=== PATIENT | female | born 1965 | race Caucasian/White ===

== ENCOUNTER 2018-03-04 16:24 | Emergency (ER) | payer BC, SELFPAY ==
[2018-03-04 16:25] VITALS: BP 146/92; PULSE 85; RESP 13; TEMP 36.6; O2SAT 98; BMI 27.8
--- NOTE | 2018-03-04 16:44 | EKG12_ITS ---
Test Reason : SYNCOPE Blood Pressure : / mmHG Vent. Rate : 075 BPM Atrial Rate : 075 BPM P-R Int : 138 ms QRS Dur : 094 ms QT Int : 412 ms P-R-T Axes : 061 041 050 degrees QTc Int : 460 ms Normal sinus rhythm Nonspecific ST abnormality Abnormal ECG Confirmed by TIAN BANDA, JONNA ([id number]), editorial clerk KIMMY FRANKLIN ([id number] on 03/06/2018 2:45:54 PM Referred By: SONY Confirmed By:JONNA OVERTON MD
--- NOTE | 2018-03-04 16:45 | CT_ITS ---
STUDY: CTA OF THE BRAIN REASON FOR EXAM: Female, 52 years old. Syncope and dizziness RADIATION DOSAGE (If Supplied By Facility): CTDIvol = ( 20.52 ) mGy, DLP = ( 1399.42 ) mGycm TECHNIQUE: CT angiography was performed with a multi-detector CT scanner. Data acquisition was obtained from the skull base through the vertex following intravenous administration of ml of . MIP images were reconstructed from the axial data set. Post-processing of the angiographic images was performed, with multiplanar reformation and 3D reconstruction. Individualized dose optimization techniques were used for this CT. COMPARISON: None. FINDINGS: Normal bilateral petrous carotid arteries. Minor plaquing of the right cavernous carotid artery with a normal supraclinoid bifurcation. Minor plaquing of the left cavernous carotid artery with a normal supraclinoid bifurcation. Normal right A1 segments of the anterior cerebral artery. Normal left A1 segments of the anterior cerebral artery. Normal intact anterior communicating artery (ACOM). Normal bilateral A2 segments of the anterior cerebral arteries. Normal right M1 and M2 segments of the middle cerebral arteries, with a normal M1 bifurcation. Normal left M1 and M2 segments of the middle cerebral arteries, with a normal M1 bifurcation. Posterior communicating arteries are not visualized consistent with normal variant The right vertebral is normal in caliber. There is mild diffuse narrowing of the left vertebral.. Normal basilar artery with a normal basilar bifurcation. The visualized bilateral superior cerebellar (SCA) arteries are normal. Normal bilateral P1, P2 and visualized P3 segments of the posterior cerebral arteries. There is no demonstrated aneurysm of the [place]. There is no demonstrated abnormality of the visualized brain. CT/CTA Head W/WO Contrast IMPRESSION: Mild atherosclerotic disease Electronically Signed: Franco Delarosa MD at 19:11 EDT , Service support ,
--- NOTE | 2018-03-04 16:45 | RAD_ITS ---
STUDY: X-RAY CHEST REASON FOR EXAM: Female, 52 years old. Syncope TECHNIQUE: AP portable COMPARISON: None. FINDINGS: Lungs are mildly hyperinflated. There is mild asymmetric increased interstitial thickening of the right lower lobe. There is a tiny nodular opacity at the right base measuring 5 to 6 mm in size There is no demonstrated pleural abnormality. Normal size heart. Normal mediastinum and dagoberto. Normal visualized pulmonary arteries. Normal visualized aortic arch and descending thoracic aorta. Normal visualized thoracic spine. Normal visualized ribs, clavicles, and shoulders. There is no demonstrated abnormality of the visualized soft tissue structures of the upper abdomen. RAD/Chest 1 View (Portable) IMPRESSION: Mild hyperinflation and asymmetric thickening of the interstitial markings at the right base. Tiny 5 to 6 mm right lower lobe nodular opacity of uncertain clinical significance. Recommend correlation with prior studies when available and follow-up Electronically Signed: Franco Delarosa MD at 17:25 EDT , Service support ,
--- NOTE | 2018-03-04 16:46 | CT_ITS ---
CTA of the neck INDICATION: Syncope and dizziness TECHNIQUE: CTA of the neck was performed scanning in a dynamically enhanced fashion in the axial plane followed by sagittal and coronal reconstructions. Radiographic technique was optimized to limit patient radiation dose. FINDINGS: There is minor soft plaque seen within the common carotids bilaterally. There is mild soft and calcific plaque within the carotid bulbs and origin of internal carotids without evidence for significant stenosis. The right vertebral is dominant. The left vertebral is diffusely smaller which may be consistent with normal developmental variant There is no significant focal segmental stenosis. Incidental finding of asymmetric prominence of the right lobe of thyroid. CT/CTA Neck W/WO Contrast IMPRESSION: Mild atherosclerotic disease without evidence for hemodynamically significant stenosis utilizing NASCET criteria. Electronically Signed: Franco Delarosa MD at 19:27 EDT , Service support ,
--- NOTE | 2018-03-04 16:56 | ED.DCSUM_ITS ---
- ER Visit Summary Date of Service: 03/04/18 Chief Complaint: Syncope History of Present Illness: The patient is a 52 F who presents after syncopal episode. Patient states she has not felt right over the past couple of weeks. She describes a fuzzy thought process in her head. She states she has been lightheaded has been holding onto objects at work when she is walking. She was seen by her PCP. Lab work and vital signs were unremarkable. Patient states today at work she went to drink water and it started to go down the wrong tube. She started to cough and choke and had a brief syncopal episode. She does note a family history of a brain aneurysm. She does not complain of headache currently. Physical Examination: Vital signs are unremarkable. Head and neck examination is unremarkable. Heart is regular rate and rhythm. On lung sounds are clear. Abdomen is soft nontender. Neuro exam is unremarkable. Test Results: EKG is sinus at 75 with no sign of acute ischemia. Portable chest x-ray shows mild hyperinflation and thickening of interstitial markings at the right base. There is a tiny 5-6 mm right lower lobe nodule. CBC is unremarkable. Chemistry studies are significant only for potassium slightly low at 3.3. CTA of the head and neck reveals mild atherosclerotic disease. There is no significant stenosis. Emergency Department Course and Treatment: Patient was given IV fluids here. On repeat evaluation she is resting comfortably. She is requesting discharge to home and a release to go back to work tomorrow. Patient believes she had a panic attack when she started choking on the water and could not breathe. She will follow with her primary care physician. Treatment Plan: [] Disposition: Discharge Impression: Syncope This note was generated with [employer] dictation software. It may contain incorrect words, spelling, and punctuation that were not noted in review of the chart prior to signing ED Disposition - Plan for ED Patient: Chief Complaint: Syncope Referrals: Travis Thakkar III, MD [Primary Care Provider] -
[2018-03-04] MEDS: 0.9% Normal Saline 1,000 ML 150 ML IV (16:58)
[2018-03-04 17:02] VITALS: BP 127/79; PULSE 80; RESP 21; O2SAT 95
--- NOTE | 2018-03-04 17:08 | NURSING ---
NO OLD EKGS
[2018-03-04 17:23] LABS: Absolute Lymphocyte Count 2.74 X10^3/ul (0.83-4.51); Absolute Neutrophil Count 4.5 X10^3/uL (2.0-7.7); Basophil# 0.05 X10^3/uL; Basophil% 0.6 % (0-1); Eosinophil# 0.15 X10^3/uL; Eosinophils% 1.9 % (0-5); Hematocrit 41.4 % (37-47); Hemoglobin 14.3 g/dl (12.0-15.0); Lymphocyte # 2.74 X10^3/ul (4.0); Lymphocyte % 35.1 % (19-41); Mean Corp Hgb Conc 34.5 g/gl (32-36); Mean Corpuscular Hgb 29.7 pg (27.0-32.0); Mean Corpuscular Volume 85.9 fL (81-99); Mean Platelet Vol. 10.6 fl (6.2-12.0); Monocyte% 5.1 % (0-10); Neutrophil # 4.45 X10^3/uL (2.7-7.7); Platelet Count 281 K/mm3 (150-450); Red Blood Count 4.82 M/mm3 (4.2-5.4); White Blood Count 7.8 K/mm3 (4.4-11.0)
[2018-03-04 17:24] LABS: POSITIVE COUNT NO; POSITIVE DIFFERENTIAL NO; POSITIVE MORPHOLOGY NO
[2018-03-04 17:28] LABS: Anion Gap 8 (5-15); BUN 7 mg/dL (7-18); Calcium,Total 8.8 mg/dL (8.5-10.1); Chloride 110 mmol/L (98-107); Creatinine, Serum 0.78 mg/dL (0.55-1.02); EST Glomerular Filtration Rate 83 mL/min (>60); Est Glom Filt Rate - Afr Amer 100 mL/min (>60); Estimated Creatinine Clearance 72.03 ml/min; Glucose 139 mg/dL (74-106); Potassium 3.3 mmol/L (3.5-5.1); Sodium Level 144 mmol/L (136-145)
[2018-03-04 17:34] VITALS: BP 125/77; BP 142/80; PULSE 74; PULSE 79
[2018-03-04 18:06] LABS: Bacteria 0 SEEN /hpf (None Seen); Mucous, Urine 0 SEEN /hpf (<or=2+); Red Blood Cells-Urine 0 SEEN /hpf (0-5); Squamous Epithelial Cells - UA 0 SEEN /hpf (5-10); White Blood Cells 0 SEEN /hpf (0-5)
[2018-03-04 18:21] LABS: Color, Urine Yellow (Yellow); Glucose, Dipstick Normal (Normal); Ketone-Dipstick Negative (Negative); Leukocyte Esterase-Dipstick Negative /ul (Negative); Nitrite-Dipstick Negative (Negative); Occult Blood-Urine 25 /ul (Negative); Protein-Dipstick Negative (Negative); Specific Gravity, Urine 1.015 (1.002-1.030); Urine Bilirubin Dipstick Negative (Negative); Urine Clarity Sl. Cloudy (Clear); Urine Urobilinogen Normal (Normal); Urine pH 6.5 (5.0 - 8.0)
[2018-03-04 18:36] VITALS: BP 138/70; PULSE 76; RESP 22; O2SAT 95
--- NOTE | 2018-03-04 19:55 | ED.DEP ---
ED Disposition - Plan for ED Patient: Disposition: Home or Assisted Living Chief Complaint: Syncope Instructions: ED Fainting Unkn Cause Referrals: Travis Thakkar III, MD [Primary Care Provider] - As soon as possible
[2018-03-04 20:06] VITALS: BP 119/58; PULSE 71; RESP 18; O2SAT 98
== END 2018-03-04 20:08 | disposition home or self-care (01) ==
PROVIDERS: Emergency Provider Emergency Medicine; Family Provider Family Medicine; PCP Family Medicine
DX: R55 Syncope and collapse (principal); J44.9 Chronic obstructive pulmonary disease, unspecified; Z72.0 Tobacco use
CPT/HCPCS: 70496; 70498; 71045; 80048; 81001; 85025; 93005; 96360; 96361; 99285; J7030; Q9967; A4216

== ENCOUNTER 2022-05-10 12:02 | Emergency (ER) | payer BC, SELFPAY ==
[2022-05-10 12:03] VITALS: BP 162/87; PULSE 85; RESP 18; TEMP 36.1; O2SAT 97; BMI 30.9
--- NOTE | 2022-05-10 12:31 | RAD_ITS ---
STUDY: X-RAY - UNILATERAL RIBS ( RIGHT ) WITH CHEST REASON FOR EXAM: Female, 56 years old. Injury TECHNIQUE - RIBS: 4 view(s) of the ribs. TECHNIQUE - CHEST: Single PA view of the chest. COMPARISON: Comparison is made with prior study dated 03/04/2018. FINDINGS - RIBS: Normal visualized ribs without a demonstrated fracture. FINDINGS - CHEST: There now is evidence of enlargement of the right hilum. Scattered calcified granulomas. There is thickening of the right minor fissure. Normal size heart. Normal visualized pulmonary arteries. There is atherosclerotic calcification of the aortic arch with tortuosity. There are diffuse degenerative changes of the visualized thoracic spine. Normal visualized ribs, clavicles, and shoulders. There is no demonstrated abnormality of the visualized soft tissue structures of the upper abdomen. RAD/Ribs Uni Min 3V w/PA Chest IMPRESSION: RIBS: Normal x-ray examination of the ribs. CHEST: Enlargement of the right hilum with thickening of the right minor fissure. Electronically Signed: Julien Mallory MD at 13:00 EDT ,
--- NOTE | 2022-05-10 13:54 | EX.ED.GENINJ ---
HPI History of Present Illness Chief Complaint: Chest Other Informant: patient Onset/Context/Timing Onset: Weeks (1) Mechanism/Context: Blunt Injury Location of pain/injuries: - (right lower ribcage) Quality of Pain: - (sore) Current Severity: Moderate Maximum Severity: Moderate Worsened by: movement, palpation, deep breathing, coughing Relieved by: remaining still Narrative Narrative: States she was at [facility] when she was trying to get something out of a basket while she was shopping. It was a large metal cage/basket, and she was leaning over to reach down into it, her right lower rib cage was against the edge of the cage as she was in it, and then she was teetering on her ribs against the edge of this, which caused sudden pain. No pop, no dyspnea, pain has been persistent for the past week and worsened a little today so she was concerned maybe this was something worse or problematic. She denies any vomiting but when the pain got worse she was little nausea today. She denies any pain with eating or abdominal discomfort. [facility] Medical History (Updated 05/10/22 @ 14:[address] Shaggy Galvan MD) COPD (chronic obstructive pulmonary disease) Medical History no medical history Home Medications albuterol sulfate 90 mcg/actuation aerosol inhaler 2 puff inhalation PRN PRN EMPHYSEMA 05/10/22 [History Last Taken Unknown] Allergy/AdvReac Type Severity Reaction Status Date / Time Penicillins Allergy Angioedema Verified 05/10/22 12:05 codeine AdvReac Nausea/Vom/ Verified 05/10/22 12:05 Diarrhea Social History Smoking Status: Current every day smoker tobacco type: cigarettes ROS ROS ED Constitutional Constitutional ED: Denies chills or fever(s) Eyes Eyes: Denies change in vision or diplopia ENT ENT ED: Denies rhinorrhea or sore throat Cardiovascular Cardiovascular: Reports as per HPI and chest pain; Denies palpitations Respiratory/Chest Respiratory/Chest: Denies cough or dyspnea Gastrointestinal Gastrointestinal: Reports nausea; Denies abdominal pain, diarrhea or vomiting Genitourinary Genitourinary ED: Denies dysuria or hematuria Musculoskeletal Musculoskeletal: Denies back pain or neck pain Integumentary Denies abscess or rash Neurologic Neurologic: Denies headache(s), paresthesias or weakness Psychiatric Psychiatric: Denies anxiety or suicidal thoughts EXAM Physical Exam Const Vital Signs: 05/10/22 12:03 Temperature 97 F L Temperature Source Temporal Pulse Rate 85 Respiratory Rate 18 Blood Pressure 162/87 H Blood Pressure Mean 112 Pulse Ox 97 Oxygen Delivery Method Room Air Positive well nourished and well developed General Appearance ED: well developed and NAD HEENT Reports moist mucous membranes normocephalic and atraumatic Eyes PERRL and EOMs intact bilaterally Neck full ROM and supple Chest Wall inspection of chest normal Chest Narrative: Right lower rib cage is tender to palpation reproducing her pain, there is no crepitance or subcutaneous emphysema, no step-off, her breath sounds are equal bilaterally, inspection is normal. No subcostal abdominal tenderness. Resp normal respiratory effort and clear to auscultation bilaterally Cardio regular rate, regular rhythm and no murmurs Rate: Negative for tachycardic GI non-tender and non-distended Auscultation: normoactive bowel sounds Palpation: soft Back/Spine no CVA tenderness General Back: other FROM Extremity normal to inspection General Extremety ED: Negative for edema, pulses abnormal or tenderness General Extremity: Negative for edema or pulses abnormal Neuro oriented x3, CN's II-XII intact bilaterally and no sensory deficits noted Sensorium / Orientation: awake and alert Motor Exam: strength 5/5 throughout Skin no rashes or lesions noted and no wounds MDM MDM MDM Narrative Medical decision making narrative: 5 view right rib series with the PA chest on my interpretation negative for any acute. Radiology in agreement. No radiographically visible fracture, no pneumothorax. Patient was offered analgesics he declined and will follow-up as needed. Supportive care advised. Radiography Diagnostic Testing: Clinical Impression(s) from Imaging Studies Ribs w/Chest X-Ray 05/10/22 12:31 IMPRESSION: RIBS: Normal x-ray examination of the ribs. CHEST: Enlargement of the right hilum with thickening of the right minor fissure. Electronically Signed: Julien Mallory MD at 13:00 EDT , Discharge Plan Triage Chief Complaint: Chest Other ED Provider: Mandy,Shaggy Dx/Rx/DC Orders Clinical Impression: Contusion of rib on right side Instructions: ED Bruise, Rib Prescriptions: No Action albuterol sulfate 90 mcg/actuation HFA aerosol inhaler 2 puff INHALATION PRN PRN (Reason: EMPHYSEMA) Label Comments: TAKE 2 PUFFS BY MOUTH EVERY 4 HOURS NEEDED Primary Care Provider: NOT,DEFINED Referrals: NOT,DEFINED [Primary Care Provider] - Doctor,Your [Non-Staff] - As Needed Disposition Disposition: Home, Self Care
== END 2022-05-10 14:07 | disposition home or self-care (01) ==
PROVIDERS: Emergency Provider Emergency Medicine; Visit Provider Emergency Medicine
DX: S20.211A Contusion of right front wall of thorax, initial encounter (principal); J44.9 Chronic obstructive pulmonary disease, unspecified; F17.210 Nicotine dependence, cigarettes, uncomplicated; X50.1XXA Overexertion from prolonged static or awkward postures, initial encounter; Y92.512 Supermarket, store or market as the place of occurrence of the external cause
CPT/HCPCS: 71101; 99282

== ENCOUNTER 2022-06-27 17:09 | Emergency (ER) | payer BC, SELFPAY ==
[2022-06-27 17:09] VITALS: BP 111/88; PULSE 73; RESP 18; TEMP 36.1; O2SAT 97; BMI 29.2
[2022-06-27 17:38] VITALS: BP 141/72
[2022-06-27 17:50] VITALS: BP 130/65; PULSE 65; RESP 16; O2SAT 98
[2022-06-27 18:40] VITALS: BP 127/67; PULSE 63; RESP 16; TEMP 36.6; O2SAT 98
--- NOTE | 2022-06-27 21:37 | EX.ED.DYSGE1 ---
HPI History of Present Illness Chief Complaint: Hypertension Narrative Narrative: 56-year-old female presenting after having a spike in her blood pressure earlier today. She reports to me that she drinks 2 energy drinks a day 1 in the morning and 1 in the evening. She also drinks coffee in between these drinks. She states I smoke like a freight train. She does not have any formal diagnosis of high blood pressure. He symptoms all occurred this morning and that she presents today her blood pressure is gone back down and she feels okay. She does not any chest pain or shortness of breath. She denies a headache currently but had one earlier. No visual complaints, nausea, vomiting. [facility] Medical History COPD (chronic obstructive pulmonary disease) Home Medications albuterol sulfate 90 mcg/actuation aerosol inhaler 2 puff inhalation PRN PRN EMPHYSEMA 05/10/22 [History Last Taken Unknown] Allergy/AdvReac Type Severity Reaction Status Date / Time Penicillins Allergy Angioedema Verified 06/27/22 17:14 codeine AdvReac Nausea/Vom/ Verified 06/27/22 17:14 Diarrhea Social History Smoking Status: Current every day smoker tobacco type: cigarettes ROS ROS ED Constitutional Constitutional ED: Denies chills or fever(s) Eyes Eyes: Denies change in vision or diplopia ENT ENT ED: Denies rhinorrhea or sore throat Cardiovascular Cardiovascular: Denies chest pain or palpitations Respiratory/Chest Respiratory/Chest: Denies cough Gastrointestinal Gastrointestinal: Denies abdominal pain Genitourinary Genitourinary ED: Denies dysuria or hematuria Musculoskeletal Musculoskeletal: Denies arthralgias or back pain Integumentary Denies abscess Neurologic Neurologic: Reports headache(s); Denies paresthesias or weakness Psychiatric Psychiatric: Denies anxiety or depression EXAM Physical Exam Const Vital Signs: 06/27/22 17:09 06/27/22 17:37 06/27/22 17:38 Temperature 96.9 F L Temperature Source Temporal Pulse Rate 73 Respiratory Rate 18 Respiratory Effort Short of Breath Respiratory Pattern Normal Blood Pressure 111/88 H 141/72 H Blood Pressure Mean 95 95 Pulse Ox 97 Oxygen Delivery Method Room Air 06/27/22 17:50 06/27/22 18:40 Temperature 98 F Temperature Source Pulse Rate 65 63 Respiratory Rate 16 16 Respiratory Effort Respiratory Pattern Blood Pressure 130/65 H 127/67 H Blood Pressure Mean 86 Pulse Ox 98 98 Oxygen Delivery Method Room Air Positive well nourished General Appearance ED: NAD; Negative for pallor HEENT Reports moist mucous membranes Negative for trauma Eyes PERRL and EOMs intact bilaterally Chest Wall inspection of chest normal and palpation of chest normal Resp normal respiratory effort and clear to auscultation bilaterally Auscultation: Negative for rales, rhonchi or wheezes Cardio regular rate and regular rhythm GI normal to inspection, nondistended, normoactive bowel sounds Neuro oriented x3, CN's II-XII intact bilaterally and no sensory deficits noted Sensorium / Orientation: alert Motor Exam: strength 5/5 throughout Psych mental status grossly normal Skin no rashes or lesions noted General Skin Exam: Negative for jaundice or pallor MDM MDM MDM Narrative Medical decision making narrative: Patient presented with symptoms of elevated blood pressure although her blood pressure here today is 111/88 on arrival. She does admit to be that she drinks a lot of caffeine and energy drinks. She also smokes. She states she has no diagnosis of hypertension in the past. She states she had a headache earlier which is resolved. She never had any chest pain or shortness of breath. Her vital signs are otherwise normal. Her physical exam is unremarkable. I suggested to her that she stop taking energy drinks and drink less coffee. I also recommended smoking cessation. She also tells me that she has not followed up with her primary care provider since her is retired. Commended to her that she get reestablished and monitor her blood pressures at home. She is amenable to this. I will think she needs any blood work or imaging. Patient discharged home in stable condition. Impression: 1. Tobacco abuse 2. Hypertension resolved 3. Caffeine abuse Lab Data Attestation: I reviewed the patient's lab results. Discharge Plan Triage Chief Complaint: Hypertension Other Complaint: Back ED Provider: Clyde Vieyra Dx/Rx/DC Orders Instructions: ED Hypertension, To Be Confirmed, ED How to Quit Smoking Prescriptions: No Action albuterol sulfate 90 mcg/actuation HFA aerosol inhaler 2 puff INHALATION PRN PRN (Reason: EMPHYSEMA) Label Comments: TAKE 2 PUFFS BY MOUTH EVERY 4 HOURS NEEDED Primary Care Provider: Care Physician,No Primary Referrals: Bob Molina MD [Med Staff - Active Staff] - 3-5 Days Care Physician,No Primary [Primary Care Provider] - Disposition Disposition: Home, Self Care Discharge Date/Time: 06/27/22 18:42
== END 2022-06-27 18:42 | disposition home or self-care (01) ==
PROVIDERS: Emergency Provider Student in an Organized Health Care Education/Training Program; Visit Provider Student in an Organized Health Care Education/Training Program
DX: I10 Essential (primary) hypertension (principal); J44.9 Chronic obstructive pulmonary disease, unspecified; F15.10 Other stimulant abuse, uncomplicated; F17.210 Nicotine dependence, cigarettes, uncomplicated
CPT/HCPCS: 99284

== ENCOUNTER 2022-08-19 14:48 | Emergency (ER) | payer BC, SELFPAY ==
[2022-08-19 14:49] VITALS: BP 159/79; PULSE 85; RESP 18; TEMP 36.4; O2SAT 98; BMI 29.2
--- NOTE | 2022-08-19 15:08 | EDS_ITS ---
HPI HPI - URI History of Present Illness Chief Complaint: Cough Detail of Chief Complaint: Hemoptysis Informant: patient Onset/Context/Timing Onset: Today and Yesterday Context: Gradual Onset Timing: Intermittent Current Severity: Mild Maximum Severity: Mild Associated Symptoms Associated Symptoms: Positive for Chest Pain; Negative for Nasal Congestion or Shortness of Breath Narrative Narrative: 56-year-old female history of COPD and a smoker. No prior history of DVT or PE risk factors. States in June she had pneumonia and hemoptysis at that time she was treated with steroids and Zithromax from an urgent care and improved. States yesterday she started coughing again and having hemoptysis. Also complaining of some chest and back discomfort. Denies any fever or chills. Denies shortness of breath. Denies nausea, vomiting or diarrhea. No hematuria. No bloody noses. Prior similar symptoms: Yes Recent Illness/Hospitalization: No ROS ROS ED ROS Narrative Hemoptysis. Cough. Review of Systems ROS Unobtainable: Denies due to encephalopathy Constitutional Constitutional ED: Denies chills or fever(s) Eyes Eyes: Denies blurry vision ENT ENT ED: Denies ear pain Cardiovascular Cardiovascular: Reports chest pain; Denies palpitations Respiratory/Chest Respiratory/Chest: Reports cough Gastrointestinal Gastrointestinal: Denies abdominal pain Genitourinary Genitourinary ED: Denies dysuria or hematuria Musculoskeletal Musculoskeletal: Denies arthralgias Integumentary Denies abscess Neurologic Neurologic: Denies headache(s) Psychiatric Psychiatric: Denies anxiety Endocrine Endocrinology: Denies cold intolerance Hematologic/Lymphatic Hematologic/Lymphatic: Denies easy bleeding or easy bruising Allergic/Immunologic Allergic/Immunologic ED: Denies mouth swelling or tongue swelling [facility] Medical History COPD (chronic obstructive pulmonary disease) Home Medications albuterol sulfate 90 mcg/actuation aerosol inhaler 2 puff inhalation PRN PRN EMPHYSEMA 05/10/22 [History Last Taken Unknown] Allergy/AdvReac Type Severity Reaction Status Date / Time Penicillins Allergy Angioedema Verified 08/19/22 14:49 codeine AdvReac Nausea/Vom/ Verified 08/19/22 14:49 Diarrhea Social History Smoking Status: Current every day smoker tobacco type: cigarettes EXAM Physical Exam Narrative Exam Narrative: This is an-year-old female no acute distress vital signs stable afebrile. Pulse ox 98% on room air % positive. H EENT exam unremarkable neck nontender. Lungs clear to auscultation bilaterally. No rales, rhonchi or wheezing. Equal symmetrical. Heart regular rhythm rate about 85 no murmur. Abdomen soft nontender normal bowel sounds no peritoneal signs. Moving all 4 extremities, nontender, no edema or cords. Neurologically awake and alert with no focal motor deficits. Const Vital Signs: 08/19/22 14:49 08/19/22 15:32 Temperature 97.5 F L Temperature Source Temporal Pulse Rate 85 Respiratory Rate 18 Respiratory Effort Normal Respiratory Depth Normal Respiratory Pattern Normal Blood Pressure 159/79 H Blood Pressure Mean 105 Pulse Ox 98 Oxygen Delivery Method Room Air Room Air Positive well developed; Negative for well nourished, obese, cachectic or contractures General Appearance ED: well developed and NAD; Negative for cachectic, contractures, cyanotic, diaphoretic or pallor Nutritional Appearance: Negative for cachectic or obese HEENT Reports moist mucous membranes; Denies dry mucous membranes normocephalic and atraumatic; Negative for scalp tenderness Face and Sinus: Negative for sinus tenderness Mouth ED: No dry mucous membranes Mouth: No dry mucous membranes Teeth and Gingiva: Negative for caries Throat: posterior oropharynx normal and tonsils abnormal Eyes PERRL and EOMs intact bilaterally General Eye ED: Negative for pale conjunctiva or scleral icterus Neck no lymphadenopathy, supple, no meningeal signs and no JVD General: Negative for anterior neck swelling or lymphadenopathy Resp normal respiratory effort and clear to auscultation bilaterally Effort and Inspection: Negative for retractions Auscultation: Negative for rales, rhonchi or wheezes Cardio S1 normal heart sound, S2 normal heart sound and no murmurs Rate: regular rate; Negative for bradycardia or tachycardic Rhythm: regular rhythm GI non-tender, non-distended and no masses Inspection: Negative for abdominal distention Auscultation: normoactive bowel sounds Palpation: soft; Negative for tender or guarding Back/Spine no CVA tenderness and normal ROM General Back: Negative for CVA tenderness Cervical Spine: Negative for cervical spine tenderness Thoracic Spine / Upper Back: Negative for thoracic spinal tenderness Lumbar Spine / Lower Back: Negative for lumbar spinal tenderness Sacrum: Negative for tenderness Extremity normal to inspection and full ROM General Extremety ED: Negative for cyanosis, tenderness or other findings General Extremity: Negative for cyanosis or other findings Neuro oriented x3 and CN's II-XII intact bilaterally Sensorium / Orientation: alert, oriented to person, oriented to place and oriented to time; Negative for orientation impaired, lethargic or stuporous Sensory Exam: No sensory level loss detected Motor Exam: strength 5/5 throughout Psych mental status grossly normal Appearance: Negative for other Attitude: No agitated Mood & Affect: Negative for depressed, anxious or tearful Skin General Skin Exam: Negative for jaundice or pallor Lesions: no lesions Rashes: no rashes Trauma: Negative for abrasion or laceration MDM MDM MDM Narrative Medical decision making narrative: 56-year-old female with hemoptysis. History of COPD and smoker. Concern is primarily for malignancy versus pneumonia. She has never had a DVT or PE and has no risk factors for it. Chest x-ray screening labs to be obtained. May or may not need to get a CAT scan. Lab Data Attestation: I reviewed the patient's lab results. Lab results narrative: CBC normal. White count 8. H&H 14.8 and 42. Platelets 341. Electrolytes unremarkable gap of a normal BUN and creatinine 10 and 0.6. Glucose 94. Chest x-ray shows a right upper lobe mass. Labs: Laboratory Results - last 24 hr 08/19/22 08/19/22 15:17 15:17 WBC 8.3 RBC 4.97 Hgb 14.8 Hct 42.9 MCV 86.3 MCH 29.8 MCHC 34.5 RDW Std Deviation 41.0 RDW Coeff of Debbie 13.1 Plt Count 341 MPV 9.7 Immature Gran % (Auto) 0.100 Neut % (Auto) 54.0 Lymph % (Auto) 37.1 Latimer % (Auto) 6.3 Eos % (Auto) 1.8 Baso % (Auto) 0.7 Absolute Neuts (auto) 4.5 Absolute Lymphs (auto) 3.08 Nucleated RBC % 0 Sodium 140 Potassium 3.7 Chloride 109 H Carbon Dioxide 23.0 Anion Gap 8 BUN 10 Creatinine 0.68 Estim Creat Clear Calc 75.51 Est GFR (MDRD) Af Amer 113 Est GFR (MDRD) Non-Af 94 BUN/Creatinine Ratio 14.6 Glucose 94 Calcium 9.2 Radiography Diagnostic Testing: Clinical Impression(s) from Imaging Studies Chest X-Ray 08/19/22 15:17 IMPRESSION: Increased opacity in the medial aspect of the right upper lobe with volume loss. A right suprahilar mass with postobstructive pneumonitis and volume loss should be ruled out. Electronically Signed: Julien Mallory MD at 15:31 EST , Chest x-ray, portable, single view interpreted both of us of the radiologist shows a right upper lobe density consistent with a mass. There may be postobstructive atelectasis or pneumonitis. CAT scan being obtained. Discharge Plan Triage Chief Complaint: Cough ED Provider: Krzysztof Chairez Dx/Rx/DC Orders Clinical Impression: Lung mass, Hemoptysis Prescriptions: No Action albuterol sulfate 90 mcg/actuation HFA aerosol inhaler 2 puff INHALATION PRN PRN (Reason: EMPHYSEMA) Label Comments: TAKE 2 PUFFS BY MOUTH EVERY 4 HOURS NEEDED Primary Care Provider: Care Physician,No Primary Referrals: Zaki Guajardo MD [Med Staff - Active Staff] - As soon as possible (Call his office tomorrow morning to get into soon as possible. I spoke with him today.) Care Physician,No Primary [Primary Care Provider] - Activity Restrictions/Additional Instructions: You have a mass in your right upper lung. We do not have a specific diagnosis but very concerned this may be lung cancer. You need to call and follow-up with the ob/gyn doctor Dr. Zaki Guajardo. I spoke with him today. Call his office tomorrow morning. You need to get in to be seen a soon as possible so they can do a scope and get a biopsy to make a definitive diagnosis and begin your treatment. Return if you start having much heavier coughing up of blood. Disposition Disposition: Home, Self Care
--- NOTE | 2022-08-19 15:17 | RAD_ITS ---
STUDY: X-RAY CHEST REASON FOR EXAM: Female, 56 years old. Coughing up blood TECHNIQUE: Single AP portable view of the chest. COMPARISON: Comparison is made with prior examination dated 05/10/2022. FINDINGS: Increased density with loss of volume in the right upper lobe. A right hilar mass with postobstructive pneumonitis should be ruled out. There is no demonstrated pleural abnormality. Normal size heart. Normal mediastinum and dagoberto. Normal visualized pulmonary arteries. Normal visualized aortic arch and descending thoracic aorta. Normal visualized thoracic spine. Normal visualized ribs, clavicles, and shoulders. There is no demonstrated abnormality of the visualized soft tissue structures of the upper abdomen. RAD/Chest 1 View (Portable) IMPRESSION: Increased opacity in the medial aspect of the right upper lobe with volume loss. A right suprahilar mass with postobstructive pneumonitis and volume loss should be ruled out. Electronically Signed: Julien Mallory MD at 15:31 EST ,
[2022-08-19 15:23] LABS: Absolute Lymphocyte Count 3.08 X10^3/uL (0.83-4.51); Absolute Neutrophil Count 4.5 X10^3/uL (2.0-7.7); Basophil# 0.06 X10^3/uL; Basophil% 0.7 % (0-1); Eosinophil# 0.15 X10^3/uL; Eosinophils% 1.8 % (0-5); Hematocrit 42.9 % (37-47); Hemoglobin 14.8 g/dL (12.0-15.0); Lymphocyte # 3.08 X10^3/ul (0.83-4.51); Lymphocyte % 37.1 % (19-41); Mean Corp Hgb Conc 34.5 g/dL (32-36); Mean Corpuscular Hgb 29.8 pg (27.0-32.0); Mean Corpuscular Volume 86.3 fL (81-99); Mean Platelet Vol. 9.7 fl (6.2-12.0); Monocyte# 0.52 X10^3/uL; Monocyte% 6.3 % (0-10); NRBC Flagged by Analyzer 0 % (0-5); Neutrophil # 4.49 X10^3/uL (2.7-7.7); Platelet Count 341 K/mm3 (150-450); RBC Distribution Width CV 13.1 % (11.6-14.6); Red Blood Count 4.97 M/mm3 (4.2-5.4); White Blood Count 8.3 K/mm3 (4.4-11.0)
--- NOTE | 2022-08-19 15:26 | CT_ITS ---
INDICATION: right upper lung mass EXAMINATION: CT CHEST WITH CONTRAST - CT Chest W/ Contrast Injection TECHNIQUE: Helically acquired images were obtained of the chest following IV contrast. A radiation dose optimization technique was used for this scan. IV Contrast dosage and agent: 100 cc Isovue-300 COMPARISON: Chest x-ray same date FINDINGS: LUNGS, PLEURA AND LARGE AIRWAYS: Right upper lobe soft tissue mass with atelectasis, some 0.5 x 6.9 x 5.9 cm, mass extends into the right hilum superiorly and to the anterior pleural surface of the right upper lobe. Spiculated nodule superior lingula 1.4 cm. Large calcified granuloma right middle lobe posteriorly.. No pleural effusion or thickening. No pneumothorax. THYROID: No thyroid lesions. HEART AND PERICARDIUM: Heart size is normal. No pericardial effusion. VESSELS: Thoracic aorta is not dilated. No aortic dissection. No obvious central pulmonary embolism although this study was not performed with the pulmonary embolism protocol. MEDIASTINUM AND ANDREA: Mediastinal and right hilar adenopathy. Esophagus is unremarkable. No hiatal hernia. UPPER ABDOMEN: 3.0 cm left adrenal mass. Poorly defined subcentimeter low-attenuation lesions in both lobes liver. BONES: No suspicious lytic or blastic abnormality. CT/Chest WITH Contrast IMPRESSION: Right upper lobe soft tissue mass extending from the right hilum to the right upper lobe anterior pleural surface. The findings highly suspicious for primary bronchogenic carcinoma. Probable metastatic nodule in the superior lingula and left adrenal metastasis. Possible hepatic metastasis. Electronically Signed: Mtaias Christopher MD at 17:09 EST ,
[2022-08-19 15:32] VITALS: O2SAT 96
[2022-08-19 15:36] LABS: Anion Gap 8 (5-15); BUN 10 mg/dL (7-18); BUN/Creat Ratio 14.6 RATIO (10-20); Calcium,Total 9.2 mg/dL (8.5-10.1); Chloride 109 mmol/L (98-107); Creatinine, Serum 0.68 mg/dL (0.55-1.02); EST Glomerular Filtration Rate 94 mL/min (>60); Est Glom Filt Rate - Afr Amer 113 mL/min (>60); Estimated Creatinine Clearance 75.51 ml/min; Glucose 94 mg/dL (74-106); Potassium 3.7 mmol/L (3.5-5.1); Sodium Level 140 mmol/L (136-145)
[2022-08-19 17:44] VITALS: BP 124/74; PULSE 62; RESP 17; O2SAT 95
== END 2022-08-19 17:45 | disposition home or self-care (01) ==
PROVIDERS: Emergency Provider Emergency Medicine; Visit Provider Emergency Medicine
DX: R91.8 Other nonspecific abnormal finding of lung field (principal); R04.2 Hemoptysis; F17.210 Nicotine dependence, cigarettes, uncomplicated; E66.9 Obesity, unspecified
CPT/HCPCS: 71045; 71260; 80048; 85025; 99283; Q9967; A4216

== ENCOUNTER → 2022-08-22 | Outpatient (CLI) | payer BC, SELFPAY ==
[2022-08-22 11:31] LABS: International Normalized Ratio 1.1; Partial Thromboplast Time 29.6 Seconds (24.1-36.2); Prothrombin Time (Protime)PT. 13.8 SECONDS (11.7-14.9)
== END | disposition home or self-care (01) ==
LOC: PAVLAB 10:49
PROVIDERS: Referring Provider Internal Medicine Critical Care Medicine; Visit Provider Internal Medicine Critical Care Medicine
DX: R91.8 Other nonspecific abnormal finding of lung field (principal)
CPT/HCPCS: 36415; 85610; 85730

== ENCOUNTER 2022-08-30 11:27 | Day surgery (SDC) | payer BC, SELFPAY ==
--- NOTE | 2022-08-30 | IMM_PTH ---
PATIENT: ALISSA ANTONIO LOC: EN U#:[id number] AGE/SX: 56/F ROOM: RE08/30/[address]: Dr. Zaki Guajardo MD : 1965 BED: DIS: 08/30/2022 SPEC #: [id number] RECD: 09/02/22 12:56 STATUS: AUNG REQ #: [id number] MARIBEL: 08/30/22 00:[address]: Zaki Guajardo DEPT: IMMUNOHISTOCHEMISTRY RECD BY: Vanessa Bashir ENTERED: 09/02/22 12:57 SP TYPE: IMMUNO OTHR DR: No Primary Care Phys Tissues: Right upper lobe of lung, NOS Procedures: NAPSIN A (add) CK20 (add) CK5-6 (add) CK7 (add) CK8 (add) KI-67 (add) P53 (add) TTF1 (add) Pankeratin (initial) P40 (add) PHYSICIAN & INSTITUTION [place] [id number] SPECIMEN INFORMATION: Tissue Source: RUL Clinical Info: RUL recurrent PNA Specimen Number: [id number] CPT code: 60653, 88683 x9 METHODOLOGY: Deparaffinized sections of prefer/formalin-fixed tissue or PAP/DQ stained slides are incubated with monoclonal/polyclonal antibodies/oligonucleotide probes. Localization is made via biotin free immunoperoxidase method. Appropriate controls are performed and reacted as expected. Results on target cell population are indicated in the following table: RESULTS: ANTIBODY / CLONE RESULT AE1-3 (AE1/AE3/PCK26) positive CK7 (OV-TL12/30) positive CK8 (79wjvhJ13) positive CK20 (KS20.8) negative TTF-1 (8G7G3/1) positive Napsin A (Rabbit Polyclonal) positive CK5-6 (D5 & 1684) negative P40 (BC28) negative P53 (DO-7) positive, 50% Ki-67 (30-9) positive, 80% These tests were developed and their performance characteristics determined by [facility]. They may not have been cleared or approved by the U.S. Food and Drug Administration. The FDA has determined that such clearance or approval is not necessary. The above immunohistochemical/dualISH markers are ordered and reviewed by the Pathologist. INTERPRETATION: Right upper lobe of lung: Non-small cell carcinoma, favor adenocarcinoma. See comment. AM:ilya 09/03/2022 Comment: The IHC profile favors a lung primary. Case has been reviewed in consultation with Dr. Lund who concurs with the above diagnosis. IDC:[email or web address]
--- NOTE | 2022-08-30 | LUNG_PTH ---
PATIENT: ALISSA ANTONIO LOC: EN U#:[id number] AGE/SX: 56/F ROOM: RE08/30/[address]: Dr. Zaki Guajardo MD : 1965 BED: DIS: 08/30/2022 SPEC #: [id number] RECD: 08/30/22 14:57 STATUS: AUNG REYesica #: [id number] MARIBEL: 08/30/22 00:[address]: Zaki Guajardo DEPT: SURGICAL PATHOLOGY RECD BY: Erinn Mendes ENTERED: 08/30/22 14:57 SP TYPE: LUNG BX OTHR DR: No Primary Care Phys Tissues: Lung, NOS Procedures: Surgery Specimen Level IV HEADER OPERATION: EBUS, bronchoscopy PRE-OP DIAGNOSIS: RUL recurrent PNA TISSUE SUBMITTED: RUL MICROSCOPIC DIAGNOSIS Right upper lobe, endobronchial biopsy: Non-small cell carcinoma, favor adenocarcinoma. AM/am 09/03/22 COMMENT Immunohistochemistry ([id number]) supports the above diagnosis and favors a lung primary. Please make reference to corresponding cytology [id number]. Case has been reviewed in consultation with Dr. Lund who concurs with the above diagnosis. IDC:[email or web address] MICROSCOPIC DESCRIPTION Slides are reviewed. GROSS DESCRIPTION Received in fixative is one container labeled with the patient's name and designated RUL. The specimen consists of multiple irregular fragments of thomas-red soft tissue that in aggregate measure 2 x 0.5 x 0.1 cm. The specimen is totally submitted in one cassette. / LYUBOV:ilya 08/30/2022 TC:0 CPT:95932 ADDENDUM ADDENDUM ADDENDUM ADDENDUM ADDENDUM ADDENDUM ADDENDUM ADDENDUM ADDENDUM ADDENDUM ADDENDUM ADDENDUM ADDENDUM ADDENDUM ADDENDUM ADDENDUM ADDENDUM ADDENDUM ADDENDUM ADDENDUM 09/20/2022 09:49 ADDENDUM 09/20/2022 09:49 ADDENDUM 09/20/2022 09:49 ADDENDUM 09/20/2022 09:49 ADDENDUM 09/20/2022 09:49 PD-L1 (KEYTRUDA) IMMUNOHISTOCHEMICAL ANALYSIS FROM [facility] RESULTS: Tumor proportion score: 70% / [facility] N[facility] REPORT FROM [facility] RESULT SUMMARY: Abnormal IMMUNOTHERAPY BIOMARKERS: Tumor Mutation [place]: Low (0.0 Mutations / MB) Microsatellite Instability: MSI Negative (2.4 %) PERTINENT NEGATIVE RESULTS: The following genes are NEGATIVE for clinically relevant mutations. Mutational hotspots and surrounding exonic regions were interrogated for DNA level point mutations and indels (fusions not assayed). AKT1, ALK, ATR, BRAF, CHEK1, DDR2, EGFR, ERBB2, ERBB3, FGFR1, MAP2K1, MET, NRAS, NTRK1, PIK3CA, POLD1, POLE, ROS1, STK11, TERT, TP53 Please see complete report in e-chart or EMR
--- NOTE | 2022-08-30 | ASPIG_PTH ---
PATIENT: ALISSA ANTONIO LOC: EN U#:[id number] AGE/SX: 56/F ROOM: RE08/30/[address]: Dr. Zaki Guajardo MD : 1965 BED: DIS: 08/30/2022 SPEC #: [id number] RECD: 08/30/22 14:21 STATUS: AUNG REYesica #: [id number] MARIBEL: 08/30/22 00:[address]: Zaki Guajardo DEPT: CYTOLOGY RECD BY: Slava Marcus ENTERED: 08/30/22 14:23 SP TYPE: ASP OUT OTHR DR: No Primary Care Phys Tissues: A - Lung, NOS B - Lung, NOS C - Lung, NOS D - Lung, NOS E - Lung, NOS F - Lung, NOS G - Lung, NOS Procedures: FNA Specimen Adequacy Special Stain Group II Surgery Specimen Level IV Cytology Other HEADER OPERATION: EBUS, bronchoscopy PRE-OP DIAGNOSIS: RLL recurrent PNA TISSUE SUBMITTED: A - EBUS, TBNA, site 2R #1, B - EBUS, TBNA, site 2R #2, C - EBUS, TBNA, site 4R #3, D - EBUS, TBNA, site 4R #4, E - EBUS, TBNA, site 4R #5, F - EBUS, TBNA, site 2R, G - EBUS, TBNA, site 4R DIAGNOSIS CYTOLOGY A. EBUS, TBNA, site 2R #1 (smears): Mucous and benign bronchial epithelial cells. No evidence of carcinoma. No lymphocytes present. B. EBUS, TBNA, site 2R #2 (smears): Blood and benign bronchial epithelial cells. No evidence of carcinoma. No lymphocytes present. C. EBUS, TBNA, site 4R #3 (smears): Blood and some lymphocytes. No evidence of carcinoma. D. EBUS, TBNA, site 4R #4 (smears): Rare atypical epithelioid cells present. E. EBUS, TBNA, site 4R #5 (smears): Rare atypical epithelioid cells present. F. EBUS, TBNA, site 2R (cell block): Negative for malignant cells. G. EBUS, TBNA, site 4R (cell block): Negative for malignant cells. AM:ilya 09/02/2022 COMMENT The specimen is evaluated at the time of procedure by Dr. Walker. Rapid OnSite Evaluation: A. EBUS, TBNA, site 2R #1: Mucous and benign bronchial epithelial cells. No evidence of carcinoma. No lymphocytes present. B. EBUS, TBNA, site 2R #2: Blood and benign bronchial epithelial cells. No evidence of carcinoma. No lymphocytes present. C. EBUS, TBNA, site 4R #3: Blood and some lymphocytes. No evidence of carcinoma. D. EBUS, TBNA, site 4R #4: Rare atypical epithelioid cells present. E. EBUS, TBNA, site 4R #5: Rare atypical epithelioid cells present. Please make reference to corresponding biopsy [id number]. Case has been reviewed in consultation with Dr. Lund who concurs with the above diagnosis. IDC:[email or web address] CYTOLOGY STUDY Slides are reviewed. CYTOLOGY GROSS A - Received labeled with the patient's name and and designated EBUS, TBNA, site 2R #1. The specimen consists of two stained smears for MELINDA (Rapid OnSite Evaluation). B - Received labeled with the patient's name and and designated EBUS, TBNA, site 2R #2. The specimen consists of two stained smears for MELINDA. C - Received labeled with the patient's name and and designated EBUS, TBNA, site 4R #3. The specimen consists of two stained smears for MELINDA. D - Received labeled with the patient's name and and designated EBUS, TBNA, site 4R #4. The specimen consists of two stained smears for MELINDA. E - Received labeled with the patient's name and and designated EBUS, TBNA, site 4R #5. The specimen consists of two stained smears for MELINDA. F - Received in RPMI is 20 ml of pink, needle rinsed fluid labeled with the patient's name and and designated EBUS, TBNA, site 2R. The specimen is submitted for cell block preparation. G - Received in RPMI is 20 ml of pink, needle rinsed fluid labeled with the patient's name and and designated EBUS, TBNA, site 4R. The specimen is submitted for cell block preparation. / AM:ilya 08/30/2022 TC:? CPT: 26522 x2, 24500 x3, 63649 x2, 33568 x2
--- NOTE | 2022-08-30 11:44 | HP.PCM_ITS ---
History and Physical Date of Admission: 08/30/22 Patient seen and examined just prior to going back for anesthesia. There is been no significant change compared to the note below. Patient does state that she has been short of breath with exertion, but has not had any more hemoptysis. Patient presents with her daughter and she will be providing the ride home. Daughter and patient are aware of the plans to follow-up next week to review the test results. Assessment and Plan Assessment and Plan (1) Lung mass: ?Status:?Acute ?Plan: High clinical suspicion for advanced stage cancer.? Right upper lobe appears to have collapsed secondary to a hilar mass with a potential metastatic lesion on the left.? Patient does have hilar adenopathy.? Discussed with the patient various approaches including CT-guided biopsy of the left upper lobe, stainer bronchoscopy and EBUS.? After review of the risks, benefits and alternatives, patient would like to proceed with an EBUS procedure.? Patient does have extensive smoking history, so concomitant COPD is expected.? We will obtain a complete pulmonary function test for quantification clarification of lung function.? We will hold on additional medications until further information is available.? Other possible differential diagnosis could include infection, but this is less likely given lack of constitutional symptoms.? Low clinical suspicion for pulmonary trauma such as pulmonary contusion as the mechanism described is not involving the right upper lobe. Proceed with bronchoscopy.? Obtain complete PFT.? Follow-up after testing results. ? ? ? Orders: Orders Bronchoscopy Today R91.8 - Other nonspecific abnormal finding of lung field ? Pulmonary Function Test (Comp) Today R91.8 - Other nonspecific abnormal finding of lung field ? Partial Thromboplast Time Today R91.8 - Other nonspecific abnormal finding of lung field ? Prothrombin Time w/INR Today R91.8 - Other nonspecific abnormal finding of lung field ? Plan Details Additional Comments: 65 minutes were spent with preparation, patient visit and coordination of bronchoscopy. Follow Up: ? ? 3 Weeks (CSM) HPI Lung Mass Chief Complaint: Abnormal CT Details: Patient is a 56-year-old female, currently without a PCP, who presents for evaluation secondary to a recent ER visit with an abnormal CT. Patient reports that she presented to the emergency department earlier this week with complaints of chest pain.? Patient states that she was trying to reach over a freezer case at a local grocery store and had felt that she had broke her rib.? Patient presented to the emergency department had a chest x-ray and CT scan showing a large right hilar mass with a spiculated nodule in the left upper lobe. Patient does report a [id number] smoking history, but readily admits that she does not routinely follow with healthcare.? 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 Patient does have an albuterol that she uses as needed.? Patient denies ever being hospitalized secondary to respiratory complaints.? Patient is not currently having any fever, chills, nausea or vomiting.? Patient has reported intermittent hemoptysis that is described as dime sized and dark in color.? Patient has not reported any recent sick contacts.? No travel is been reported.? Patient is stating that she is breathing at her baseline at this time. Patient does present with her daughter.? Patient's daughter reports that she thought her breathing was at her baseline.? Patient does have continued chest pain, but states it is not progressing.? Patient is not reporting any palpitations.? Patient does not use supplemental oxygen at baseline.? Patient is very worried about maintaining her job.? Patient reportedly works third shift and has had issues with making it to some appointments given her schedule. Review of systems otherwise negative from a constitutional, HEENT, respiratory, cardiovascular, GI, genitourinary, musculoskeletal, skin, neurologic, psychiatric and hematologic system unless stated above. Documentation personally reviewed prior to the office visit ER visit from 08/19/2022 was personally reviewed.? Patient had presented to the emergency department complaining of hemoptysis.? Patient subsequently had a chest x-ray showing increased opacity in the right upper lobe with volume loss and a right suprahilar mass.? Patient subsequently had a CT scan of the chest reiterating the presence of a right hilar mass measuring 0.5 x 6.9 x 5.9 cm and a spiculated nodule in the superior lingula measuring 1.4 cm. Intake Vital Signs ? 08/19/2214:49 08/22/2206:00 08/22/2209:40 Height 5 ft 3 in 5 ft 3 in 5 ft 3.5 in Weight: 74.843 kg ? 76.827 kg BMI 29.2 ? 29.5 BP 159/79 H ? 129/90 H Blood Pressure Location ? ? Lt radial Position ? ? Sitting Respiration 18 ? 18 Pulse 85 ? 80 Pulse Source ? ? Monitor Temp 36.4 C L ? 35.5 C L Temperature Source ? ? Temporal Artery Pulse Oximetry (%) 98 ? 95 Oxygen Delivery Method ? ? room air Intake Visit Reasons:?Lung Mass Art Department Head Required: No DME Vendor: n/a Accompanied by: Daughter Is patient in pain?: No Allergies Penicillins Allergy (Verified 08/22/22 09:45) Angioedemacodeine Adverse Reaction (Verified 08/22/22 09:45) Nausea/Vom/Diarrhea Medications albuterol sulfate 90 mcg/actuation aerosol inhaler 2 puff inhalation PRN PRN EMPHYSEMA 05/10/22 [History Confirmed 08/22/22] PFSH Medical History? COPD (chronic obstructive pulmonary disease) Social History? Smoking Status:? Current every day smoker tobacco type: cigarettes Exam Const Constitutional: Positive conversant, cooperative, in no acute respiratory distress, well developed, well nourished, good hygiene and appears older than stated age; Negative wearing supplemental oxygen or ill appearing Head Head: Yes normocephalic, Yes atraumatic and No cyanosis of lips/distal nose Eyes Eye: Positive clear conjunctiva; Negative nystagmus, scleral abnormality or cataract present Ears Ear: Positive hearing normal and external ears normal; Negative hard of hearing Neck Neck: Positive normal visual inspection, full ROM and trachea midline; Negative lymphadenopathy or JVD Chest Wall Chest: Positive symmetric chest movement and increased A/P diameter; Negative crepitus or tenderness Resp lung sounds: Positive diminished lung sounds diminished: Positive upper and right and normal expiratory time; Negative wheezes, wheeze present on forced exhalation, rhonchi, rales, dullness or use of accessory muscles Cardio Cardiac: Positive regular rate, regular rhythm, S1 normal and S2 normal; Negative murmur, rub or gallop Musc Musculoskeletal: Positive steady gait; Negative using an assistive device for ambulation, kyphosis or scoliosis Skin Pulmonary Skin Exam: Positive intact; Negative lesion, rash, ulcers or erythema Pulses Pulse: Yes radial pulses present Extremities Extremities: Yes capillary refill normal, No clubbing, No cyanosis and No edema Neuro Neurologic: Yes no focal neuro deficits, Yes conversant, Yes cooperative, Yes normal cognition, Yes normal coordination, Yes normal concentration and Yes understands questions Lymph Lymphatic: No lymphadenopathy Psych Appearance: Positive grossly normal Mental Status: Positive mental status grossly normal Mood: Positive congruent mood Affect: Positive normal affect
[2022-08-30 11:56] VITALS: BP 100/60; PULSE 70; RESP 18; TEMP 37; O2SAT 98; BMI 30.2
[2022-08-30 14:20] VITALS: BP 100/60; BP 138/79; PULSE 68; RESP 16; TEMP 36.3; O2SAT 99
[2022-08-30] MEDS: Lactated Ringers 1,000 ML 15 ML IV (14:23)
[2022-08-30 14:30] VITALS: BP 100/60; BP 158/89; PULSE 71; RESP 16; O2SAT 88
--- NOTE | 2022-08-30 14:43 | OP.BRONCH_ITS ---
Patient Name: Bethany Crouch Procedure Date: 08/30/2022 1:09 PM Date of : 1965 Age: 56 Procedure: Bronchoscopy Indications: Mediastinal adenopathy, Right upper lobe lung mass suspicious for cancer Providers: Zaki Guajardo MD Medicines: See the Anesthesia note for documentation of the administered medications Complications: Right vocal cord hematoma, Hemorrhage Procedure: Pre-Anesthesia Assessment: - A History and Physical has been performed. The patient's medications, allergies and sensitivities have been reviewed. - The risks and benefits of the procedure and the sedation options and risks were discussed with the patient. All questions were answered and informed consent was obtained. - ASA Grade Assessment: II - A patient with mild systemic disease. - After reviewing the risks and benefits, the patient was deemed in satisfactory condition to undergo the procedure. After I obtained informed consent, the scope was passed under direct vision. Throughout the procedure, the patient's blood pressure, pulse, and oxygen saturations were monitored continuously. The ultrasound bronchoscope was introduced through the mouth, via laryngeal mask airway and advanced to the tracheobronchial tree of both lungs. The procedure was accomplished without difficulty. The patient tolerated the procedure well. Findings: The laryngeal mask airway is in good position. The vocal cords appear normal. The subglottic space is normal. The trachea is of normal caliber. The daisy is sharp. The tracheobronchial tree of the left lung was examined to at least the first subsegmental level. Bronchial mucosa and anatomy are normal; there are no endobronchial lesions, and no secretions. Right Lung Abnormalities: A nearly obstructing (greater than 90% obstructed) mass was found proximally, at the orifice in the right upper lobe. The mass was large and exophytic, fungating and smooth. The lesion was not traversed. The scope was withdrawn and replaced with the EBUS bronchoscope to accomplish the ultrasound examination. Lymph Nodes: An endobronchial ultrasound endoscope was utilized to systematically examine the right upper paratracheal region (level 2R) and right lower paratracheal region (level 4R) in order to assist with fine needle aspiration. Lymph node sizing was performed via endobronchial ultrasound for suspected lung cancer. Sampling by transbronchial needle aspiration was also performed using an Olympus EBUS-TBNA 19 gauge needle in the right upper paratracheal region (level 2R) and right lower paratracheal region (level 4R) and sent for routine cytology. - The 2R (upper paratracheal) node was 12 mm by EBUS. Two samples with the needle were obtained. - The 4R (lower paratracheal) node was 18 mm by EBUS. Three samples with the needle were obtained. Lymph Nodes: Rapid On-Site Evaluation (MELINDA): Cytology was preliminarily non-diagnostic in the right upper paratracheal region (level 2R). Preliminary cytology was suggestive of malignancy (final results are pending) in the right lower paratracheal region (level 4R). Endobronchial biopsies of a mass were performed in the right upper lobe using a forceps and sent for histopathology examination. Five samples were obtained. The patient did appear to have a complication of a right vocal cord hematoma on follow-up surveillance bronchoscopy Impression: - Mediastinal adenopathy - Right upper lobe lung mass suspicious for cancer - The airway examination of the left lung was normal. - An exophytic, fungating and smooth mass was found in the right upper lobe. This lesion is likely malignant. - Endobronchial ultrasound was performed. - Lymph node sizing and sampling was performed. Tissue was obtained from this exam. The preliminary diagnosis is highly suspicious for malignancy. - Rapid On-Site Evaluation (MELINDA): Preliminary cytology was non-diagnostic in node level 2R and of malignancy in node level 4R. - Right vocal cord hematoma Recommendation: - The patient will be observed post-procedure, until all discharge criteria are met. - Await biopsy and cytology results. - Patient has a contact number available for emergencies. The signs and symptoms of potential delayed complications were discussed with the patient. Return to normal activities tomorrow. Written discharge instructions were provided to the patient. - Follow up with bronchoscopist in one week. Procedure Code(s): --- Professional --- 79538, Bronchoscopy, rigid or flexible, including fluoroscopic guidance, when performed; with endobronchial ultrasound (EBUS) guided transtracheal and/or transbronchial sampling (eg, aspiration[s]/biopsy[ies]), 3 or more mediastinal and/or hilar lymph node stations or structures 10562, Bronchoscopy, rigid or flexible, including fluoroscopic guidance, when performed; with bronchial or endobronchial biopsy(s), single or multiple sites 61102, Bronchoscopy, rigid or flexible, including fluoroscopic guidance, when performed; with transendoscopic endobronchial ultrasound (EBUS) during bronchoscopic diagnostic or therapeutic intervention(s) for peripheral lesion(s) (List separately in addition to code for primary procedure[s]) Diagnosis Code(s): --- Professional --- J98.9, Respiratory disorder, unspecified R91.8, Other nonspecific abnormal finding of lung field R59.0, Localized enlarged lymph nodes R09.89, Other specified symptoms and signs involving the circulatory and respiratory systems CPT copyright 2017 [employer] [employer]. All rights reserved. The codes documented in this report are preliminary and upon retail event coordinator review may be revised to meet current compliance requirements. MD Zaki Fernandez MD 08/30/2022 2:42:34 PM This report has been signed electronically. Number of Addenda: 0 Note Initiated On: 08/30/2022 1:09 PM
[2022-08-30 14:45] VITALS: BP 100/60; BP 156/87; PULSE 73; RESP 16; O2SAT 96
[2022-08-30 15:00] VITALS: BP 100/60; BP 158/98; PULSE 75; RESP 16; TEMP 36.2; O2SAT 92
[2022-08-30 15:47] VITALS: BP 100/60; BP 130/74; PULSE 81; RESP 16; TEMP 36.8; O2SAT 93
== END 2022-08-30 15:55 | disposition home or self-care (01) ==
LOC: EN 11:28 → AC 11:30
PROVIDERS: Visit Provider Internal Medicine Critical Care Medicine
PROC: BB4BZZZ Ultrasonography of Pleura (ICD-10-PCS; CPT 31625; principal; 2022-08-30 12:00)
DX: R91.8 Other nonspecific abnormal finding of lung field (principal); J44.9 Chronic obstructive pulmonary disease, unspecified; F17.210 Nicotine dependence, cigarettes, uncomplicated; R59.1 Generalized enlarged lymph nodes; J98.9 Respiratory disorder, unspecified; R59.0 Localized enlarged lymph nodes
CPT/HCPCS: 31625; 31653; 31654; 88161; 88172; 88305; 88313; 88341; 88342; J7120; J2405

== ENCOUNTER → 2022-09-06 | Outpatient (CLI) | payer BC, SELFPAY ==
--- NOTE | 2022-09-09 13:29 | PFTCOMP ---
COMPLETE PULMONARY FUNCTION TEST INTERPRETATION Brief HPI: Patient is a 56-year-old female, currently under the care of myself, who presents to [facility] for complete pulmonary function tests secondary to diagnosis of lung mass. Respiratory therapist reports good effort and reproducible results. Interpretation: Forced expiration spirometry shows a moderate large airways obstructive ventilatory defect with an FEV1 of 64% predicted. There is no significant bronchodilator response by strict ATS criteria. Spirograms are of good quality and plateau slowly, indicating slowly emptying areas of the lungs. The respiratory flow volume loop shows decreased expiratory flow rates at all lung volumes consistent with airway obstruction. Lung volumes by body plethysmography show a normal total lung capacity at 4.46 L, 95% predicted. All other lung volumes are within normal limits. Diffusion capacity by carbon monoxide is decreased at 68% predicted. The airway resistance is mildly elevated. No previous pulmonary function tests were available for review. Impression: Irreversible moderate large airways obstructive ventilatory defect with a symmetric duction diffusion capacity, and a pattern consistent with COPD
== END | disposition home or self-care (01) ==
LOC: PSN 10:50
PROVIDERS: Referring Provider Internal Medicine Critical Care Medicine; Visit Provider Internal Medicine Critical Care Medicine
DX: R91.8 Other nonspecific abnormal finding of lung field (principal)
CPT/HCPCS: 94060; 94726; 94729

== ENCOUNTER → 2022-09-11 | Outpatient (CLI) | payer BC, SELFPAY ==
--- NOTE | 2022-09-11 09:30 | PET_ITS ---
EXAMINATION: FDG PET-CT INDICATIONS: 56-year-old female with history of primary lung carcinoma presenting for initial staging examination. COMPARISON EXAMINATION: CT of the chest report 08/19/2022 INDEX LESION SIZE SUV INTERPRETATION Left upper lung (n=2) 14.1 mm largest 10.3 max Fulfills quantitative criteria for viable neoplasm. Mediastinum, right thoracic perihilum 23.4 mm largest 15.4 max Fulfills quantitative criteria for viable neoplasm. TECHNIQUE: Following the intravenous administration of 13.5 mCi of F-18 deoxyglucose via the left antecubital fossa, multiplanar image acquisitions of the head, neck, chest, abdomen and pelvis to level of mid-thigh, lower extremities obtained at one hour post radiopharmaceutical administration contemporaneously interpreted with the current CT of the head, neck, chest, abdomen and pelvis to level of mid-thigh, lower extremities dated 09/11/22 via coregistration reveal: SERUM GLUCOSE LEVEL: 139 mg/dl. HEIGHT: 63 inches. WEIGHT: 107 lbs. FINDINGS: Head/Neck: There is no evidence of abnormal increased glucose metabolism in the pharyngeal mucosal space, parapharyngeal space, bilateral-lateral and anterior neck, hypopharynx and distribution of the laryngeal structures. The visualized portion of the cerebral cortical-subcortical structures demonstrate symmetric and preserved glucose metabolism. CHEST: Facilitated FDG concentration is identified in the left upper lung field, left upper lobe in two separate nodular presentations largest and most metabolically active. The calculated maximum standard uptake value is 10.3. The maximum axial diameter of the metabolic, morphologic abnormality is 14.1 mm (transverse). There is increased uptake FDG noted in the right upper and lower paratracheal, subcarinal mediastinum, and right thoracic perihilum involving lymph node stations 2R, 4R, 7 and 10R. The calculated maximum standard uptake value is 15.4. The maximum axial diameter of the largest soft tissue density is 23.4 mm (transverse). Prominent radiopharmaceutical concentration is identified in the left ventricular myocardium commensurate with the [place]. Pertinent chest CT findings are as follows. Bilateral axillary subcentimeter soft tissue densities with fatty hilus are nonglucose avid. There is atherosclerotic calcification defined in the thoracic aorta without evidence of dilatation-aneurysm formation. Coronary arterial calcification is observed. Calcifications are defined in the mediastinum and bilateral thoracic perihilum without evidence of overt increased FDG uptake. No additional parenchymal densities-nodules are defined in the right and left hemithorax displaying increased FDG uptake. Abdomen/Pelvis: Normal physiologic distribution of the radiopharmaceutical is apparent in the hepatic (1.8) and splenic parenchyma, both renal units, bladder and visualized intestinal tract. Diffuse radiopharmaceutical concentration is noted in all four quadrants of the abdomen and pelvis. Pertinent abdomen and pelvis CT findings are as follows. There is atherosclerotic calcification defined in the abdominal aorta without evidence of dilatation-aneurysm formation. Abdominal-pelvic arterial calcification is observed. Cyst formation is defined in the right hemipelvis without evidence of increased radiopharmaceutical concentration. Calcification is defined in the left lower hemipelvis. Skeletal: Degenerative changes are noted in the cervical, thoracic and lumbar spine. There is no visualized sclerotic-lytic changes manifest on review of the appendicular-axial skeletal structures. PET/PET/CT Tumor Base -Thigh Init IMPRESSION: 1. ABNORMAL EXAMINATION INDICATIVE OF MALIGNANT-VIABLE NEOPLASM. 2. Increased radiopharmaceutical concentration defined in the left upper lung, left upper lobe in two separate nodular presentations fulfill quantitative criteria for viable neoplasm. (Rodas et al, Annals of Internal Medicine, 138:724, 2003). 3. Enhanced tracer uptake noted in the mediastinum and right thoracic perihilum fulfill quantitative criteria for malignant transformation. Electronic Signature Amandeep Pizarro D.O. Accurate Quantification of SUVs for this report are calculated using the exclusive [employer] Technology. ([place].S. Patent No. [phone] B2 [phone] [place] patent [phone]). Standardization and correction of the FDG SUV metric via [employer]AN technology allow for vendor non-specific objective quantitative examination comparison and optimization of the sensitivity and specificity of the FDG PET-CT examination. Electronically Signed: Amandeep Pizarro, at 16:25 EST ,
== END | disposition home or self-care (01) ==
PROVIDERS: Referring Provider Nurse Practitioner Acute Care; Visit Provider Nurse Practitioner Acute Care
DX: C34.11 Malignant neoplasm of upper lobe, right bronchus or lung (principal)
CPT/HCPCS: 78815; A9552

== ENCOUNTER → 2022-10-04 | Outpatient (CLI) | payer BC, SELFPAY ==
--- NOTE | 2022-10-04 10:16 | MRI_ITS ---
EXAM: MR HEAD WITHOUT AND WITH INTRAVENOUS CONTRAST CLINICAL INDICATION: Staging of lung carcinoma. TECHNIQUE: Multiplanar and multisequence MR images of the brain were obtained without and with intravenous contrast. This report was created using [employer] report [employer] technology. CONTRAST: IV 15mL Clariscan COMPARISON: CTA head with and without contrast 03/04/2018. Whole body PET/CT fusion scan 09/11/2022. FINDINGS: BRAIN AND EXTRA-AXIAL SPACES: Unremarkable. No intra- or extra-axial hemorrhage. No evidence of acute infarct. No intracranial mass or mass effect. There is preservation of the menon/white matter interface. Posterior fossa structures are unremarkable. No hydrocephalus. No abnormal enhancing lesions intra-axially and extra-axially. No suspicious focal signal abnormalities throughout the brain parenchyma. Normal ventricles and cisterns. SELLA: Unremarkable. Normal sella turcica, pituitary gland, infundibular stalk, optic chiasm and hypothalamus. AUDITORY SYSTEM: Unremarkable. The internal auditory canals are patent. BONES/JOINTS: Unremarkable. No discrete lytic or blastic abnormalities. SINUSES: Unremarkable as visualized. Clear. MASTOID AIR CELLS: Unremarkable as visualized. Clear. ORBITS: Unremarkable as visualized. Both globes, extraocular muscles, optic nerves and retrobulbar fat appear unremarkable. VASCULATURE: Unremarkable as visualized. Normal flow voids in the major intracranial circulation. MRI/Brain W/WO Contrast IMPRESSION: 1. No MRI evidence of intracranial metastatic disease. 2. Negative MRI brain with and without contrast. Electronically Signed: Gregorio Thompson MD at 13:28 EST ,
== END | disposition home or self-care (01) ==
LOC: MRI 10:16
PROVIDERS: Referring Provider Internal Medicine Medical Oncology; Visit Provider Internal Medicine Medical Oncology
DX: C34.91 Malignant neoplasm of unspecified part of right bronchus or lung (principal)
CPT/HCPCS: 70553; A9575

== ENCOUNTER 2022-10-29 15:05 | Emergency (ER) | payer BC, SELFPAY ==
[2022-10-29 15:06] VITALS: BP 149/82; PULSE 97; RESP 18; TEMP 36.4; O2SAT 96; BMI 30.1
--- NOTE | 2022-10-29 17:12 | EDS_ITS ---
HPI History of Present Illness Chief Complaint: Back Detail of Chief Complaint: Lower central to right-sided low back pain for months. Informant: patient Onset/Context/Timing Onset: Month(s) Context: - (Does not recall) Chronic pain exacerbated by: Movement and touch. There is no history of trauma. Timing: Continuous Quality: - (Pain) Location: Lumbar and Right Leg Current Severity: Mild Maximum Severity: Severe Worsened by: improves with Movement, Ambulation, Bending, Lifting and Night time pain Relieved by: Nothing Associated Symptoms Associated Symptoms: Radiation to Right Leg (Pain radiates to the buttocks lateral aspect of the right leg to the knee.) and - (She denies foot drop. She denies buckling of her knees going up or down steps.); Negative for Numbness, Tingling, Radiation to Left Leg, Fever, Abdominal Pain (Patient's state she knows she is and her abdomen is bigger than normal.), Dysuria, Unable to Ambulate, Unable to Transfer, Urinary Retention, Urinary Incontinence, Constipation or Fecal Incontinence Narrative Narrative: Patient is a 56-year-old woman who is not a good informant. She was diagnosed with lung cancer July 2022. She apparently has an appointment to see Dr. Horvath in November. CT of the chest performed August 19, 2022 revealed a right upper lobe soft tissue mass with atelectasis. The mass extended into the right hilum superiorly and to the anterior pleural space. A spiculated nodule was also noted superior lingula measuring 1.4 cm. There was a large calcified granuloma noted right middle lobe posteriorly. There is no pleural effusion or thickening noted. There is no pneumothorax. There was concern that there may be a lesion in the liver. Dr. Tuttle's office note was reviewed. She underwent endobronchial biopsy that revealed an adenocarcinoma. PET scan was performed on 09/11/2022 that demonstrated hypermetabolic activity in the right upper and lower paratracheal, subcarinal mediastinum and right perihilum. 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 The PET scan was reviewed independently by me. There is no evidence of activity in the thoracic or lumbar vertebral body or pelvic bones. Patient now presents with central to right low back pain. She denies dysuria, frequency, urgency or hematuria. Pain is exacerbated by movement and palpation. She denies history of renal ureterolithiasis. She apparently declined radiation and chemotherapy. Patient denies radiation of the pain down to her feet. She states the pain goes into her right buttocks lateral right leg to the knee. She denies buckling of her knees going up or down steps. She denies dragging her right or left foot. She denies symptoms of claudication. She denies bowel or bladder dysfunction. She denies saddle paresthesia or anesthesia. Prior similar symptoms: Yes Recent Illness/Hospitalization: Yes [facility] Medical History COPD (chronic obstructive pulmonary disease) Emphysema, unspecified History of concussion History of melanoma History of steroid therapy Shortness of breath on exertion Smoker Wears contact lenses Wears dentures Home Medications cholecalciferol (vitamin D3) 25 mcg (1,000 unit) capsule 60 mcg PO DAILY 09/05/22 [History Last Taken Unknown] ibuprofen 200 mg tablet 600 mg PO BID PRN Pain 09/05/22 [History Last Taken Unknown] Handicap Placard #1 ea 10/03/22 [Rx Last Taken Unknown] albuterol sulfate 90 mcg/actuation aerosol inhaler 2 puff inhalation Q4H PRN shortness of breath or wheezing #8.5 grams 10/03/22 [Rx Last Taken Unknown] dexamethasone 4 mg tablet 4 mg PO .every 3 days #10 tabs 10/16/22 [Rx Last Taken Unknown] naproxen 500 mg tablet 500 mg PO BID #20 tabs 10/29/22 [Rx Last Taken Unknown] Allergy/AdvReac Type Severity Reaction Status Date / Time Penicillins Allergy Angioedema Verified 10/29/22 15:08 codeine AdvReac Nausea/Vom/ Verified 10/29/22 15:08 Diarrhea Family History Grandfather Cancer lung cancer Sister Cancer ovarian Brother Cancer bladder Surgical History History of melanoma excision History of tubal ligation History of wisdom tooth extraction Social History (Updated 10/29/22 @ 17:[address] Darren Donaldson MD) household members: none Smoking Status: Current every day smoker tobacco type: cigarettes substance use type: does not use ROS ROS ED Constitutional Constitutional ED: Denies chills, fever(s), subjective, sweats or weight loss Eyes Eyes: Denies blurry vision, change in vision or diplopia EXAM Physical Exam Const Vital Signs: 10/29/22 15:06 Temperature 97.6 F L Temperature Source Temporal Pulse Rate 97 Respiratory Rate 18 Blood Pressure 149/82 H Blood Pressure Mean 104 Pulse Ox 96 Oxygen Delivery Method Room Air MDM MDM MDM Narrative Medical decision making narrative: Records were reviewed from Dr. Quiroz, PET scan, CT scan. The notes were summarized in the HPI narrative. In light of her history of stage IV adenocarcinoma of the lung blood work was obtained to assess white count, rule out anemia, assess for metastasis to liver since there is concern with elevated transaminases, alk phos and calcium. Also to obtain you a to evaluate for urinary tract infection or blood to suggest kidney stone since patient believes she has a kidney stone. There is no history of prior stone. Lab Data Attestation: I reviewed the patient's lab results. Lab results narrative: White count is slightly elevated. There is no bandemia. H&H is normal. Comprehensive metabolic panel is remarkable for glucose of 158 with a normal CO2 and anion gap. Examinations are normal. Alk phos and calcium are normal. This would suggest that there is no significant metastasis to the bone. Furthermore there was no evidence of metastasis to bone on recent PET scan. UA is unremarkable. Macro was positive for protein, glucose and occult blood. Labs: Laboratory Results - last 24 hr 10/29/22 10/29/22 10/29/22 17:00 17:06 17:06 WBC 11.1 H RBC 5.23 Hgb 15.0 Hct 45.8 MCV 87.6 MCH 28.7 MCHC 32.8 RDW Std Deviation 42.0 RDW Coeff of Debbie 13.1 Plt Count 464 H MPV 9.5 Immature Gran % (Auto) 0.500 Neut % (Auto) 82.9 H Lymph % (Auto) 12.[address] % (Auto) 3.6 Eos % (Auto) 0.0 Baso % (Auto) 0.2 Absolute Neuts (auto) 9.2 H Absolute Lymphs (auto) 1.42 Nucleated RBC % 0 Sodium 140 Potassium 4.1 Chloride 109 H Carbon Dioxide 24.0 Anion Gap 7 BUN 12 Creatinine 0.72 Estim Creat Clear Calc 71.31 Est GFR (MDRD) Af Amer 107 Est GFR (MDRD) Non-Af 88 BUN/Creatinine Ratio 16.6 Glucose 158 H Calcium 9.7 Total Bilirubin 0.50 AST 13 L ALT 23 Alkaline Phosphatase 104 Total Protein 7.6 Albumin 3.7 Globulin 3.9 Albumin/Globulin Ratio 0.9 Urine Color Yellow Urine Clarity Clear Urine pH 6.0 Ur Specific P[place]or 1.020 Urine Protein 15 H Urine Glucose (UA) 50 H Urine Ketones Negative Urine Occult Blood 50 H Urine Nitrite Negative Urine Bilirubin Negative Urine Urobilinogen Normal Ur Leukocyte Esterase Negative Urine RBC 5-10 SEEN Urine WBC 0 SEEN Ur Squamous Epith Cells 0-5 SEEN Urine Bacteria 0 SEEN Urine Mucus 0 SEEN Treatment and Re-Evaluation Narrative: Patient was reassessed at 195. She reports marked improvement of her pain. She was discharged home with anti-inflammatories and she has no contraindication. Discharge Plan Triage Chief Complaint: Back ED Provider: Darren Donaldson Dx/Rx/DC Orders Clinical Impression: Musculoskeletal back pain, COPD (chronic obstructive pulmonary disease), Stage IV adenocarcinoma of lung, Elevated blood pressure reading Instructions: ED Back Pain (Acute or Chronic) Prescriptions: New naproxen 500 mg tablet 500 mg PO BID Qty: 20 0RF No Action ibuprofen 200 mg tablet 600 mg PO BID PRN (Reason: Pain) cholecalciferol (vitamin D3) 25 mcg (1,000 unit) capsule 60 mcg PO DAILY albuterol sulfate 90 mcg/actuation HFA aerosol inhaler 2 puff INHALATION Q4H PRN (Reason: shortness of breath or wheezing) Qty: 8.5 3RF (DME) Handicap Placard See Rx Instructions .Route .MEDSUPPLY Qty: 1 0RF Rx Instructions: As directed dexamethasone 4 mg tablet 4 mg PO .every 3 days Qty: 10 0RF Primary Care Provider: Care Physician,No Primary Referrals: Miguel Rivas MD [Med Staff - Active Staff] - As Needed Care Physician,No Primary [Primary Care Provider] - Disposition Disposition: Home, Self Care
[2022-10-29 17:14] LABS: Bacteria 0 SEEN /hpf (None Seen); Mucous, Urine 0 SEEN /hpf (<or=2+); White Blood Cells 0 SEEN /hpf (0-5)
[2022-10-29 17:15] LABS: Absolute Lymphocyte Count 1.42 X10^3/uL (0.83-4.51); Absolute Neutrophil Count 9.2 X10^3/uL (2.0-7.7); Basophil# 0.02 X10^3/uL; Basophil% 0.2 % (0-1); Hematocrit 45.8 % (37-47); Lymphocyte # 1.42 X10^3/ul (0.83-4.51); Lymphocyte % 12.8 % (19-41); Mean Corp Hgb Conc 32.8 g/dL (32-36); Mean Corpuscular Hgb 28.7 pg (27.0-32.0); Mean Corpuscular Volume 87.6 fL (81-99); Mean Platelet Vol. 9.5 fl (6.2-12.0); Monocyte% 3.6 % (0-10); NRBC Flagged by Analyzer 0 % (0-5); Neutrophil # 9.16 X10^3/uL (2.7-7.7); Neutrophil % 82.9 % (47-70); Platelet Count 464 K/mm3 (150-450); RBC Distribution Width CV 13.1 % (11.6-14.6); Red Blood Count 5.23 M/mm3 (4.2-5.4); White Blood Count 11.1 K/mm3 (4.4-11.0)
[2022-10-29] MEDS: Ketorolac 15 MG/ML Vial IV (17:32)
[2022-10-29 17:50] LABS: Color, Urine Yellow (Yellow); Glucose, Dipstick 50 mg/dl (Normal); Ketone-Dipstick Negative (Negative); Leukocyte Esterase-Dipstick Negative /ul (Negative); Nitrite-Dipstick Negative (Negative); Occult Blood-Urine 50 /ul (Negative); Protein-Dipstick 15 mg/dl (Negative); Urine Bilirubin Dipstick Negative (Negative); Urine Clarity Clear (Clear); Urine Urobilinogen Normal (Normal)
[2022-10-29 18:04] LABS: Red Blood Cells-Urine 5-10 SEEN /hpf (0-5); Squamous Epithelial Cells - UA 0-5 SEEN /hpf (5-10)
[2022-10-29 18:06] LABS: ALB/GLOB Ratio 0.9 RATIO (0.9-2.4); AST(SGOT) 13 U/L (15-37); Alanine Aminotransfer ALT/SGPT 23 U/L (13-56); Albumin, Serum 3.7 g/dL (3.2-5.0); Alkaline Phosphatase 104 U/L (45-117); Anion Gap 7 (5-15); BUN 12 mg/dL (7-18); BUN/Creat Ratio 16.6 RATIO (10-20); Calcium,Total 9.7 mg/dL (8.5-10.1); Chloride 109 mmol/L (98-107); Creatinine, Serum 0.72 mg/dL (0.55-1.02); EST Glomerular Filtration Rate 88 mL/min (>60); Est Glom Filt Rate - Afr Amer 107 mL/min (>60); Estimated Creatinine Clearance 71.31 ml/min; Globulin 3.9 g/dL (2.2-4.2); Glucose 158 mg/dL (74-106); Potassium 4.1 mmol/L (3.5-5.1); Protein, Total 7.6 g/dL (6.4-8.2); Sodium Level 140 mmol/L (136-145)
[2022-10-29 19:59] VITALS: RESP 16
== END 2022-10-29 20:15 | disposition home or self-care (01) ==
PROVIDERS: Emergency Provider Emergency Medicine; Visit Provider Emergency Medicine
DX: M54.50 Low back pain, unspecified (principal); C34.90 Malignant neoplasm of unspecified part of unspecified bronchus or lung; J44.9 Chronic obstructive pulmonary disease, unspecified; F17.210 Nicotine dependence, cigarettes, uncomplicated; M79.604 Pain in right leg; R03.0 Elevated blood-pressure reading, without diagnosis of hypertension; G89.29 Other chronic pain; M79.671 Pain in right foot; M79.672 Pain in left foot; Z80.1 Family history of malignant neoplasm of trachea, bronchus and lung
CPT/HCPCS: 80053; 81001; 85025; 99282; A4216